=== PATIENT | female | born 1945 | race Hispanic/Latino ===

== ENCOUNTER 2021-12-23 20:11 | Inpatient (IN) | payer MEDICARE ==
[2021-12-23] MEDS ORDERED: ASPIRIN 325 MG TAB PO ONE (20:58)
--- NOTE | 2021-12-23 21:31 | XRay Report ---
XR chest routine 2V INDICATION / CLINICAL INFORMATION: CHEST PAIN. COMPARISON: None available. FINDINGS: SUPPORT DEVICES: None. HEART /PULMONARY VASCULATURE: No significant abnormality. LUNGS / PLEURA: No significant pulmonary or pleural abnormality. No pneumothorax. ADDITIONAL FINDINGS: Moderate thoracic spondylosis. No acute osseous findings. IMPRESSION: 1. No acute findings. Signer Name: Torres Tobar MD Signed: 12/23/2021 9:27 PM Workstation Name: [id number]
[2021-12-23 22:14] LABS: Basophils # (Auto) 0.1 K/mm3 (0.0-0.1); Basophils % (Auto) 0.9 % (0.0-1.8); Eosinophils # (Auto) 0.2 K/mm3 (0.0-0.4); Eosinophils % (Auto) 3.5 % (0.0-4.3); Hematocrit 39.4 % (30.3-42.9); Hemoglobin 13.4 gm/dl (10.1-14.3); Lymphocytes % (Auto) 32.4 % (13.4-35.0); Mean Corpuscular HGB Conc 34 % (30-34); Mean Corpuscular Volume 92 fl (79-97); Monocytes # (Auto) 0.6 K/mm3 (0.0-0.8); Monocytes % (Auto) 9.1 % (0.0-7.3); Platelet Count 149 K/mm3 (140-440); Red Cell Distribution Width 13.7 % (13.2-15.2)
[2021-12-23 22:36] LABS: Alanine Aminotransferase 23 units/L (7-56); Albumin 4.3 g/dL (3.9-5); BUN/Creatinine Ratio 21; Blood Urea Nitrogen 17 mg/dL (7-17); Calcium 10.3 mg/dL (8.4-10.2); Hemolysis Index 6
[2021-12-23] MEDS ORDERED: CLOPIDOGREL 75 MG TAB PO ONE (22:53)
[2021-12-23] MEDS ORDERED: ENOXAPARIN 100 MG/1 ML INJ SUB-Q ONE (22:53)
[2021-12-23] MEDS ORDERED: ASPIRIN 81 MG TAB CHEW PO ONE (22:53)
--- NOTE | 2021-12-23 22:59 | Emergency Department Report ---
HPI - General Chief Complaint: Chest Pain Time Seen by Provider: 12/23/21 22:53 - HPI HPI: 3 days prior to arrival the patient had a 2-hour episode of upper anterior chest pain that was nonradiating moderate pressure-like and not associated with any increase in her chronic shortness of breath nor any nausea or diaphoresis. The patient was feeling well until today when she had a 4-hour episode of the same pain that is currently not present. She also reports a slight increase in her usual nausea that she has chronically. She denies headache more shortness of breath than usual vomiting or any other associated symptoms. Aspirin made it better nothing makes it worse. The last time she had a stress test was back in 2010. ED Past Medical Hx - Past Medical History Hx Hypertension: Yes Hx Diabetes: Yes Additional medical history: Hypercholesterolemia - Family History Family history: no significant - Social History Smoking Status: Never Smoker Substance Use Type: None ED Review of Systems ROS: Stated complaint: CHEST PAIN Other details as noted in HPI All other systems reviewed and negative. Physical Exam - Physical Exam Vital Signs: Vital Signs 12/23/21 20:38 Temperature 99.5 F Pulse Rate 57 L Respiratory 18 Rate Blood Pressure 108/55 O2 Sat by Pulse 96 Oximetry Physical Exam: Physical Exam: Constitutional: AAOX3. No acute distress. No diaphoresis. Obese HENT: Normocephalic. Pupils equal and reactive. No throat edema or erythema. Neck: No neck rigidity or tenderness. Cardiovascular: Heart sounds: No murmur. Normal rate and regular rhythm. Pulses: Intact distal pulses. Lungs: No wheezing or rales. Chest wall: No tenderness. Abdominal: No distension. No mass/pulsatile mass. No abdominal tenderness, guarding nor rebound. Back: No CVA TTP. Musculoskeletal: Normal range of motion. No edema, No calf TTP. Skin: Warm and dry. Neurological: Alert and oriented to person, place, and time. Psychiatric: Mood and affect normal. Normal cognition and memory. Normal judgement. ED Course Vital Signs 12/23/21 20:38 Temperature 99.5 F Pulse Rate 57 L Respiratory 18 Rate Blood Pressure 108/55 O2 Sat by Pulse 96 Oximetry - Reevaluation(s) Reevaluation #1: 12/23/21 22:58 EKG done at 2043 showed a rate of 62, normal. The rhythm is sinus rhythm, normal. There is prolonged MN interval. There is left axis deviation. There is an age-indeterminate anterior infarct. There is abnormal T waves with inversions in the anterolateral leads. There is minimal ST segment elevation in aVF and 3 not meeting criteria for STEMI. Reevaluation #2: 12/23/21 22:59 The patient is currently pain-free. It looks like she has had a non-STEMI. We will be keeping her in the hospital for cardiology evaluation. She will get Plavix aspirin and Lovenox. She does not have a history of kidney disease although her creatinine here is elevated at 2.2. Critical care time: 30 minutes. 12/23/21 23:00 ED Medical Decision Making - Lab Data Result diagrams: 12/23/21 21:21 12/23/21 21:21 Critical care attestation.: If time is entered above; I have spent that time in minutes in the direct care of this critically ill patient, excluding procedure time. ED Disposition Clinical Impression: Non-STEMI (non-ST elevated myocardial infarction) Disposition: 02 SHORT TERM HOSPITAL Is pt being admited?: Yes Does the pt Need Aspirin: No Condition: Stable
[2021-12-23] MEDS ORDERED: ENOXAPARIN 80 MG/0.8 ML INJ SUB-Q ONE (23:00)
[2021-12-23 23:12] LABS: Chol/HDL Ratio 2.35 %; HDL Cholesterol 59 mg/dL (40-59); LDL Cholesterol,Direct 53 mg/dL (50-130)
[2021-12-23] MEDS ORDERED: SODIUM CHLORIDE 0.9% 1000 ML 1,000 ML IV SCH (23:45)
[2021-12-23] MEDS ORDERED: traMADol 50 MG TAB PO PRN (23:46)
[2021-12-23] MEDS ORDERED: ACETAMINOPHEN 325 MG TAB PO PRN (23:46)
[2021-12-23] MEDS ORDERED: DEXTROSE 50% IN WATER (25GM) 50 ML SYRINGE IV PRN (23:46)
[2021-12-23] MEDS ORDERED: MORPHINE 4 MG/1 ML INJ IV PRN (23:46)
[2021-12-23] MEDS ORDERED: NITROGLYCERIN 0.4 MG TAB SUBL SL PRN (23:46)
[2021-12-24] MEDS ORDERED: hydrALAZINE 20 MG/1 ML INJ IV PRN (00:18)
--- NOTE | 2021-12-24 00:18 | History and Physical Report ---
History of Present Illness Date of examination: 12/24/21 Date of admission: 12/24/21 Chief complaint: Chest pain History of present illness: 76 years old female with past medical history of diabetes hypertension and high cholesterol was brought to the emergency room because of 2-hour episode of upper anterior chest pain that was nonradiating moderate pressure-like and not associated with any increase in her chronic shortness of breath nor any nausea or diaphoresis. The patient was feeling well until today when she had a 4-hour episode of the same pain that is currently not present. She also reports a slight increase in her usual nausea that she has chronically. She denies headache more shortness of breath than usual vomiting or any other associated symptoms. Aspirin made it better nothing makes it worse. The last time she had a stress test was back in 2010. In the emergency room patient is found to have troponin of 0.193. We are going to admit the patient we will put the patient on chest pain pathway , will do serial cardiac enzyme. Will consult cardiology for evaluation Past History Past Medical History: diabetes, hypertension, hyperlipidemia Past Surgical History: No surgical history Social history: no significant social history Family history: no significant family history Medications and Allergies Allergies Allergy/AdvReac Type Severity Reaction Status Date / Time No Known Allergies Allergy Verified 12/23/21 20:58 Active Meds: Active Medications Acetaminophen (Acetaminophen 325 Mg Tab) 650 mg PO Q6H PRN PRN Reason: Pain, Mild (1-3) Aspirin (Aspirin 81 Mg Tab Chew) 81 mg PO QDAY BENEDICT Atorvastatin Calcium (Atorvastatin 40 Mg Tab) 40 mg PO QHS BENEDICT Clopidogrel Bisulfate (Clopidogrel 75 Mg Tab) 75 mg PO QDAY [facility] Dextrose (Dextrose 50% In Water (25gm) 50 Ml Syringe) 0 ml IV Q30MIN PRN; Protocol PRN Reason: Hypoglycemia Heparin Sodium (Porcine) (Heparin 5,000 Unit/1 Ml Vial) 5,000 unit SUB-Q Q12HR BENEDICT Sodium Chloride (Nacl 0.9% 1000 Ml) 1,000 mls @ 100 mls/hr IV DIRECT BENEDICT Insulin Human Lispro (Insulin Lispro 100 Unit/Ml) 0 unit SUB-Q Q6HR BENEDICT; Protocol Morphine Sulfate (Morphine 4 Mg/1 Ml Inj) 2 mg IV Q5MIN PRN PRN Reason: Chest Pain unrelieved by NTG Nitroglycerin (Nitroglycerin 0.4 Mg Tab Subl) 0.4 mg SL Q5M PRN PRN Reason: Chest Pain Sodium Chloride (Sodium Chloride 0.9% 10 Ml Flush Syringe) 10 ml IV PRN PRN PRN Reason: LINE FLUSH Tramadol HCl (Tramadol 50 Mg Tab) 50 mg PO Q6H PRN PRN Reason: Pain, Moderate (4-6) Review of Systems All systems: negative Cardiovascular: chest pain, shortness of breath Respiratory: shortness of breath Gastrointestinal: nausea Exam - Constitutional Vitals: Temp Pulse Resp BP Pulse Ox 99.5 F 57 L 18 108/55 96 12/23/21 20:38 12/23/21 20:38 12/23/21 20:38 12/23/21 20:38 12/23/21 20:38 General appearance: Present: no acute distress, well-nourished - EENT Eyes: Present: PERRL ENT: hearing intact, clear oral mucosa - Neck Neck: Present: supple, normal ROM - Respiratory Respiratory effort: normal Respiratory: bilateral: diminished - Cardiovascular Heart Sounds: Present: S1 & S2. Absent: rub, click - Extremities Extremities: pulses symmetrical, No edema Peripheral Pulses: within normal limits - Abdominal General gastrointestinal: Present: soft, non-tender, non-distended, normal bowel sounds Female genitourinary: Present: normal - Integumentary Integumentary: Present: clear, warm, dry - Musculoskeletal Musculoskeletal: gait normal, strength equal bilaterally - Psychiatric Psychiatric: appropriate mood/affect, intact judgment & insight - Neurologic Neurologic: CNII-XII intact, moves all extremities HEART Score - HEART Score Troponin: Troponin T 0.193 ng/mL (0.00-0.029) H* 12/23/21 21:21 Results - Labs CBC & Chem 7: 12/23/21 21:21 12/23/21 21:21 Labs: Laboratory Last Values WBC 6.1 K/mm3 (4.5-11.0) 12/23/21 21: RBC 4.30 M/mm3 (3.65-5.03) 12/23/21 21:21 Hgb 13.4 gm/dl (10.1-14.3) 12/23/21 21:21 Hct 39.4 % (30.3-42.9) 12/23/21 21: MCV 92 fl (79-97) 12/23/21: MCH 31 pg (28-32) 12/23/21 21:21 MCHC 34 % (30-34) 12/23/21 21:21 RDW 13.7 % (13.2-15.2) 12/23/21 21:21 Plt Count 149 K/mm3 (140-440) 12/23/21 21:21 Lymph % (Auto) 32.4 % (13.4-35.0) 12/23/21 21:21 [place] % (Auto) 9.1 % (0.0-7.3) H 12/23/21 21:21 Eos % (Auto) 3.5 % (0.0-4.3) 12/23/21 21: Baso % (Auto) 0.9 % (0.0-1.8) 12/23/21 21: Lymph # (Auto) 2.0 K/mm3 (1.2-5.4) 12/23/21 21: [place] # (Auto) 0.6 K/mm3 (0.0-0.8) 12/23/21 21:21 Eos # (Auto) 0.2 K/mm3 (0.0-0.4) 12/23/21 21:21 Baso # (Auto) 0.1 K/mm3 (0.0-0.1) 12/23/21 21: Seg Neutrophils % 54.1 % (40.0-70.0) 12/23/21 21: Seg Neutrophils # 3.3 K/mm3 (1.8-7.7) 12/23/21 21:21 Sodium 139 mmol/L (137-145) 12/23/21 21:21 Potassium 3.5 mmol/L (3.6-5.0) L 12/23/21 21:21 Chloride 99.3 mmol/L (98-107) 12/23/21 21:21 Carbon Dioxide 27 mmol/L (22-30) 12/23/21 21:21 Anion Gap 16 mmol/L 12/23/21 21:21 BUN 17 mg/dL (7-17) 12/23/21 21:21 Creatinine 0.8 mg/dL (0.6-1.2) 12/23/21 21:21 Estimated GFR > 60 ml/min 12/23/21 21:21 BUN/Creatinine Ratio 21 % 12/23/21 21:21 Glucose 108 mg/dL (65-100) H 12/23/21 21:21 Calcium 10.3 mg/dL (8.4-10.2) H 12/23/21 21:21 Total Bilirubin 0.90 mg/dL (0.1-1.2) 12/23/21 21:21 AST 44 units/L (5-40) H 12/23/21 21:21 ALT 23 units/L (7-56) 12/23/21 21:21 Alkaline Phosphatase 111 units/L (35-129) 12/23/21 21:21 Troponin T 0.193 ng/mL (0.00-0.029) H* 12/23/21 21:21 Total Protein 7.7 g/dL (6.3-8.2) 12/23/21 21:21 Albumin 4.3 g/dL (3.9-5) 12/23/21 21:21 Albumin/Globulin Ratio 1.3 % 12/23/21 21:21 Triglycerides 192 mg/dL (2-149) H 12/23/21 21:21 Cholesterol 139 mg/dL (50-199) 12/23/21 21:21 LDL Cholesterol Direct 53 mg/dL (50-130) 12/23/21 21:21 HDL Cholesterol 59 mg/dL (40-59) 12/23/21 21:21 Cholesterol/HDL Ratio 2.35 % 12/23/21 21:21 - Imaging and Cardiology Chest x-ray: report reviewed Assessment and Plan VTE prophylaxis?: Chemical Plan of care discussed with patient/family: Yes - Patient Problems (1) Non-ST elevation NV (NSTEMI) Status: Acute Plan to address problem: Admit the patient to the medical telemetry. Aspirin 81 mg p.o. daily. Plavix 75 mg p.o. daily. Lipitor 40 mg p.o. daily. Nitroglycerin as needed. We will do the serial cardiac enzyme. We do the echocardiogram and consult cardiology (2) Diabetes Status: Acute Plan to address problem: Accu-Chek every 6 hours with Humalog moderate dose coverage. Diabetic education (3) Hypertension Status: Acute Plan to address problem: Hydralazine 10 mg IV every 6 hours as needed. We will continue the home medication (4) High cholesterol Status: Acute Plan to address problem: Lipitor 40 mg p.o. daily. We will recheck the lipid panel. (5) DVT prophylaxis Status: Acute Plan to address problem: Heparin 5000 units subcu every 12 hours for DVT prophylaxis. Pepcid 20 mg p.o. twice daily for GI prophylaxis. Patient is a full code
[2021-12-24 00:34] LABS: Blood Urea Nitrogen 16 mg/dL (7-17); Calcium 10.2 mg/dL (8.4-10.2); Hemolysis Index 5
[2021-12-24 00:38] LABS: BUN/Creatinine Ratio 23
[2021-12-24] MEDS ORDERED: POTASSIUM CHLORIDE ER 20 MEQ TAB PO SCH (08:30)
[2021-12-24] MEDS ORDERED: HEPARIN 10,000 UNITS/10 ML VIAL IV SCH (09:30)
[2021-12-24] MEDS ORDERED: CLOPIDOGREL 75 MG TAB PO SCH (10:00)
[2021-12-24] MEDS ORDERED: SODIUM CHLORIDE 0.9% 500 ML 500 ML IV SCH ×2 (10:00→15:00)
[2021-12-24] MEDS ORDERED: NITROGLYCERIN DRIP 50 MG/250 ML BOTTLE IV SCH (10:00)
[2021-12-24] MEDS ORDERED: HEPARIN/ 0.45% NACL DRIP 25,000 UNIT/500 ML BAG IV SCH (10:00)
[2021-12-24] MEDS ORDERED: HEPARIN 5,000 UNIT/1 ML VIAL SUB-Q SCH (10:00)
[2021-12-24] MEDS ORDERED: HEPARIN 10,000 UNITS/10 ML VIAL IV PRN (10:00)
--- NOTE | 2021-12-24 10:44 | Electrocardiograph Report ---
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
[2021-12-24 11:43] LABS: Eosinophils # (Auto) 0.1 K/mm3 (0.0-0.4); Eosinophils % (Auto) 2.7 % (0.0-4.3); Lymphocytes # (Auto) 1.2 K/mm3 (1.2-5.4); Monocytes # (Auto) 0.4 K/mm3 (0.0-0.8)
[2021-12-24 11:56] LABS: INR 1.03 (0.87-1.13); Partial Thromboplastin Time 33.4 Sec. (24.2-36.6)
[2021-12-24] MEDS: FAMOTIDINE 20 MG TAB PO SCH ×2 (12:08→21:02)
[2021-12-24 12:09] LABS: Blood Urea Nitrogen 14 mg/dL (7-17); Calcium 10.5 mg/dL (8.4-10.2); Hemolysis Index 0
[2021-12-24 12:10] LABS: BUN/Creatinine Ratio 20
[2021-12-24 12:11] LABS: Basophils % (Auto) 0.7 % (0.0-1.8); Hematocrit 40.1 % (30.3-42.9); Hemoglobin 13.1 gm/dl (10.1-14.3); Lymphocytes % (Auto) 29.7 % (13.4-35.0); Mean Corpuscular HGB Conc 33 % (30-34); Mean Corpuscular Volume 92 fl (79-97); Monocytes % (Auto) 9.7 % (0.0-7.3); Platelet Count 114 K/mm3 (140-440); Red Blood Count 4.35 M/mm3 (3.65-5.03); Red Cell Distribution Width 13.6 % (13.2-15.2)
--- NOTE | 2021-12-24 12:18 | Consultation ---
History of Present Illness Consult date: 12/24/21 Requesting physician: YINKA BETANCOURT Consult reason: other (NSTEMI) History of present illness: Patient is 68-year-old female with a past medical history of diabetes, hypertension, and hyperlipidemia who came to the ED for a complaint of chest pain which started this past Thursday. Patient reports that she was in her usual state of health when all of a sudden on Thursday afternoon she developed chest pressure that radiated into her jaw and was associated with nausea and loose bowels. Patient reports that she took aspirin at home with some release to have pain. Patient reports that she did not have any pain on Thursday however on Thursday the pain returned and was not relieved with anything so she came to the ED for further evaluation. In the ED patient was found to have elevated troponin of 0.19. 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 Patient is previously unknown to our practice. Cardiology is consulted for NSTEMI Past History Past Medical History: diabetes, hypertension, hyperlipidemia Past Surgical History: cholecystectomy, total knee replacement, Other (Back surgery) Social history: no significant social history Family history: CAD, diabetes, other (Parkinson) Medications and Allergies Allergies Allergy/AdvReac Type Severity Reaction Status Date / Time bee venom protein (honey bee) Allergy Anaphylaxis Verified 12/24/21 10:21 brinzolamide [From Azopt] Allergy Anaphylaxis Verified 12/24/21 10:21 cephalexin [From Keflex] Allergy Anaphylaxis Verified 12/24/21 10:21 ciprofloxacin [From Cipro] Allergy Anaphylaxis Verified 12/24/21 10:21 doxycycline Allergy Anaphylaxis Verified 12/24/21 10:21 guaifenesin Allergy Anaphylaxis Verified 12/24/21 10:21 ibuprofen [From Motrin] Allergy Anaphylaxis Verified 12/24/21 10:21 levofloxacin [From Levaquin] Allergy Anaphylaxis Verified 12/24/21 10:21 meclizine Allergy Anaphylaxis Verified 12/24/21 10:21 Penicillins Allergy Anaphylaxis Verified 12/24/21 10:10 red dye Allergy Anaphylaxis Verified 12/24/21 10:21 rofecoxib [From Vioxx] Allergy Anaphylaxis Verified 12/24/21 10:21 Sulfa (Sulfonamide Allergy Anaphylaxis Verified 12/24/21 10:21 Antibiotics) tetracycline Allergy Anaphylaxis Verified 12/24/21 10:21 codeine AdvReac Unknown Verified 12/24/21 10:21 Active Meds: Active Medications Acetaminophen (Acetaminophen 325 Mg Tab) 650 mg PO Q6H PRN PRN Reason: Pain, Mild (1-3) Aspirin (Aspirin 81 Mg Tab Chew) 81 mg PO QDAY [facility]EDICT Atorvastatin Calcium (Atorvastatin 40 Mg Tab) 40 mg PO QHS [facility]ENEDICT Dextrose (Dextrose 50% In Water (25gm) 50 Ml Syringe) 0 ml IV Q30MIN PRN; Protocol PRN Reason: Hypoglycemia Famotidine (Famotidine 20 Mg Tab) 20 mg PO BID BENEDICT Heparin Sodium (Porcine) (Heparin 10,000 Units/10 Ml Vial) 4,400 unit IV Q6H PRN PRN Reason: Anti-Xa Assay < 0.1 units/ml Hydralazine HCl (Hydralazine 20 Mg/1 Ml Inj) 10 mg IV Q6H PRN PRN Reason: Blood Pressure Sodium Chloride (Nacl 0.9% 1000 Ml) 1,000 mls @ 100 mls/hr IV DIRECT BENEDICT Sodium Chloride (Nacl 0.9% 500 Ml) 500 mls @ 50 mls/hr IV DIRECT BENEDICT Stop: 12/24/21 19:59 Heparin Sodium/Sodium Chloride (Heparin/ 0.45% Nacl-25,000 Unit/500 Ml) 25,000 unit in 500 mls @ 20 mls/hr IV TITRATE BENEDICT; Protocol Last Admin: 12/24/21 11:37 Dose: 1,000 units/hr, 20 mls/hr Nitroglycerin/Dextrose (Tridil Drip 50mg/250ml) 50 mg in 250 mls @ 6 mls/hr IV TITR BENEDICT; Protocol Insulin Human Lispro (Insulin Lispro 100 Unit/Ml) 0 unit SUB-Q Q6HR BENEDICT; Protocol Morphine Sulfate (Morphine 4 Mg/1 Ml Inj) 2 mg IV Q5MIN PRN PRN Reason: Chest Pain unrelieved by NTG Nitroglycerin (Nitroglycerin 0.4 Mg Tab Subl) 0.4 mg SL Q5M PRN PRN Reason: Chest Pain Potassium Chloride (Potassium Chloride Er 20 Meq Tab) 40 meq PO ONCE@0830 [facility] Stop: 12/24/21 12:30 Sodium Chloride (Sodium Chloride 0.9% 10 Ml Flush Syringe) 10 ml IV PRN PRN PRN Reason: LINE FLUSH Tramadol HCl (Tramadol 50 Mg Tab) 50 mg PO Q6H PRN PRN Reason: Pain, Moderate (4-6) Review of Systems Constitutional: no weight loss, no weight gain, no fever, no chills Ears, nose, mouth and throat: no sinus pressure, no sinus pain Cardiovascular: chest pain (Radiates to jaw), shortness of breath (Patient reports chronic shortness of breath) Respiratory: shortness of breath, dyspnea on exertion Gastrointestinal: nausea, diarrhea, change in bowel habits, no vomiting Musculoskeletal: no neck stiffness, no neck pain Integumentary: no rash, no pruritis, no redness Neurological: no head injury, no transient paralysis Psychiatric: anxiety Endocrine: no cold intolerance, no heat intolerance Hematologic/Lymphatic: no easy bruising, no easy bleeding Physical Examination Vital Signs Temp Pulse Resp BP Pulse Ox 99.5 F 57 L 18 108/55 96 12/23/21 20:38 12/23/21 20:38 12/23/21 20:38 12/23/21 20:38 12/23/21 20:38 General appearance: no acute distress HEENT: Positive: Normocephaly Neck: Positive: trachea midline Cardiac: Positive: Reg Rate and Rhythm Lungs: Positive: Normal Breath Sounds Neuro: Positive: Grossly Intact Abdomen: Positive: Soft, Active Bowel Sounds Skin: Negative: Rash, Suspicious Lesions, Ulceration Extremities: Present: upper extr. pulses, edema Results 12/24/21 Unknown 12/24/21 Unknown Cardiac Enzymes 12/23/21 Range/Units 21:21 AST 44 H (5-40) units/L Coagulation 12/24/21 Range/Units Unknown PT 14.7 (12.2-14.9) Sec. INR 1.03 (0.87-1.13) APTT 33.4 (24.2-36.6) Sec. Lipids 12/23/21 Range/Units 21:21 Triglycerides 192 H (2-149) mg/dL Cholesterol 139 (50-199) mg/dL HDL Cholesterol 59 (40-59) mg/dL Cholesterol/HDL Ratio 2.35 % CBC 12/23/21 12/24/21 Range/Units 21:21 Unknown WBC 6.1 4.2 L (4.5-11.0) K/mm3 RBC 4.30 4.35 (3.65-5.03) M/mm3 Hgb 13.4 13.1 (10.1-14.3) gm/dl Hct 39.4 40.1 (30.3-42.9) % Plt Count 149 114 L (140-440) K/mm3 Lymph # (Auto) 2.0 1.2 (1.2-5.4) K/mm3 Centre # (Auto) 0.6 0.4 (0.0-0.8) K/mm3 Eos # (Auto) 0.2 0.1 (0.0-0.4) K/mm3 Baso # (Auto) 0.1 0.0 (0.0-0.1) K/mm3 Comprehensive Metabolic Panel 12/23/21 12/23/21 12/24/21 Range/Units 21:21 23:52 Unknown Sodium 139 139 142 (137-145) mmol/L Potassium 3.5 L 3.4 L 3.6 (3.6-5.0) mmol/L Chloride 99.3 98.0 103.4 (98-107) mmol/L Carbon Dioxide 27 27 28 (22-30) mmol/L BUN 17 16 14 (7-17) mg/dL Creatinine 0.8 0.7 0.7 (0.6-1.2) mg/dL Glucose 108 H 102 H 117 H (65-100) mg/dL Calcium 10.3 H 10.2 10.5 H (8.4-10.2) mg/dL AST 44 H (5-40) units/L ALT 23 (7-56) units/L Alkaline Phosphatase 111 (35-129) units/L Total Protein 7.7 (6.3-8.2) g/dL Albumin 4.3 (3.9-5) g/dL - Imaging and Cardiology Echo: report reviewed Cardiac cath: pending EKG interpretations - Telemetry EKG Rhythm: Sinus Rhythm - EKG Sinus rhythms and dysrhythmias: sinus rhythm Repolarization changes or abnormalities: ST or T wave suggestive of ischemia Myocardial infarction: anterior ND (old age or i Assessment and Plan Patient is 68-year-old female with a past medical history of diabetes, hypertension, and hyperlipidemia who came to the ED for a complaint of chest rola n which started this past Thursday NSTEMI Hypertension Diabetes Hyperlipidemia Echo 12/23/2021-EF 50 to 55%. Right ventricular systolic function is normal. Trace mitral regurgitation. Trace tricuspid regurgitation. Plan: EKG shows sinus rhythm 62 with prolonged [place] interval. Left axis deviation. Anterior infarct age indeterminate. Abnormal T wave, probable ischemia, widespread. Troponin is noted to be elevated and downtrending . 0.19->0.18->0.17. Will initiate heparin drip and nitroglycerin drip Patient for cardiac cath in the AM. N.p.o. after midnight Patient currently on aspirin Plavix and Lipitor. Will stop Plavix Continue aspirin and Lipitor No beta-todd due to patient having low heart rate Echo results noted above. Patient has normal echo Discussed plan of care with patient who verbalized understanding and acknowledgment Patient seen in conjunction with Dr. Moreno who agrees with this plan of care - Patient Problems (1) Non-ST elevation ND (NSTEMI) Current Visit: No Status: Acute (2) Diabetes Current Visit: No Status: Acute (3) Hypertension Current Visit: No Status: Acute (4) High cholesterol Current Visit: No Status: Acute
[2021-12-24] MEDS: INSULIN LISPRO 100 UNIT/ML SUB-Q SCH ×2 (15:17→18:50)
--- NOTE | 2021-12-24 15:47 | Event Note ---
Date: 12/24/21 The patient was evaluated this morning, and she was found to be hemodynamically stable. #Non-insulin dependent type II diabetes mellitus - hemoglobin A1c: 6.5 - home regimen: Unknown - current regimen: Moderate SSI - blood glucose goal 140-180 while inpatient - continue to monitor #NSTEMI Troponin 0.19--> 0.18--> 0.17 TTE revealing EF 50-55% with normal-sized LV, normal LV systolic function, mild concentric LVH, and RVSP is 12 mmHg. Cardiology consulted; appreciate recs Discontinuing Plavix. Continuing with Aspirin 81 mg daily, atorvastatin 40 mg daily. Continue heparin drip and nitroglycerin drip. Patient transferred to [facility]. Continue to monitor. #Hyperlipidemia #Hypertension - home medications: Atorvastatin 40 mg daily - current medications: Atorvastatin 40 mg daily. - SBP goal <160 and DBP goal <90 while inpatient. Pending repeat lipid panel. Hemoglobin A1c 6.5. - continue to monitor #Morbid obesity #Weight loss counseling #Exercise counseling - BMI 44.3 - Counseled patient on the importance of weight loss, incorporating exercise, and dietary changes (lean meats, fresh fruits and vegetables, and water intake). Patient expresses understanding. - Time: +15 min #Coordination of CARE time: 30 minutes. Total visit time equals 30 or more minutes with greater than 50% spent [id number] on coordination of care and counseling. Critical Care Billing: The high probability of a clinically significant, sudden or life threatening deterioration of the [cardiac] system(s) required my full and direct attention, intervention and personal management. The aggregate critical care time was [60] minutes. This time is in addition to time spent performing reported procedures but includes the following: [x] Data Review and interpretation [x] Patient assessment and monitoring of vital signs [x] Documentation [x] Medication orders and management
[2021-12-24] MEDS: ASPIRIN 81 MG TAB CHEW PO SCH (16:44)
[2021-12-24] MEDS ORDERED: LIP THERAPY VASELINE TP PRN (19:35)
[2021-12-25] MEDS: INSULIN LISPRO 100 UNIT/ML SUB-Q SCH ×2 (01:01→06:10)
[2021-12-25 04:29] LABS: Basophils % (Auto) 0.7 % (0.0-1.8); Eosinophils # (Auto) 0.1 K/mm3 (0.0-0.4); Eosinophils % (Auto) 3.1 % (0.0-4.3); Hematocrit 36.6 % (30.3-42.9); Hemoglobin 12.4 gm/dl (10.1-14.3); Lymphocytes # (Auto) 1.8 K/mm3 (1.2-5.4); Lymphocytes % (Auto) 41.3 % (13.4-35.0); Mean Corpuscular HGB Conc 34 % (30-34); Mean Corpuscular Volume 92 fl (79-97); Monocytes # (Auto) 0.5 K/mm3 (0.0-0.8); Monocytes % (Auto) 10.2 % (0.0-7.3); Platelet Count 104 K/mm3 (140-440); Red Cell Distribution Width 13.6 % (13.2-15.2)
[2021-12-25 04:40] LABS: INR 1.04 (0.87-1.13)
[2021-12-25 04:44] LABS: BUN/Creatinine Ratio 15; Blood Urea Nitrogen 12 mg/dL (7-17); Calcium 9.8 mg/dL (8.4-10.2); Hemolysis Index 3
[2021-12-25] MEDS ORDERED: ONDANSETRON 4 MG/2 ML INJ IV PRN (05:45)
[2021-12-25] MEDS: ASPIRIN 81 MG TAB CHEW PO SCH ×2 (05:55→10:39)
[2021-12-25] MEDS: POTASSIUM CHLORIDE 10 MEQ 10 MEQ/100 ML BAG IV SCH ×4 (06:50→10:45)
[2021-12-25] MEDS ORDERED: HEPARIN/NS 5000 UNIT/500ML 1,000 ML IR ONE (08:17)
[2021-12-25] MEDS ORDERED: NITROGLYCERIN SYRINGE 3 ML ONE (08:18)
--- NOTE | 2021-12-25 08:32 | Progress Note ---
Assessment and Plan Assessment and plan: History of present illness: 76 years old female with past medical history of diabetes hypertension and high cholesterol was brought to the emergency room because of 2-hour episode of upper anterior chest pain that was nonradiating moderate pressure-like and not associated with any increase in her chronic shortness of breath nor any nausea or diaphoresis. The patient was feeling well until today when she had a 4-hour episode of the same pain that is currently not present. She also reports a slight increase in her usual nausea that she has chronically. She denies headache more shortness of breath than usual vomiting or any other associated symptoms. Aspirin made it better nothing makes it worse. The last time she had a stress test was back in 2010. In the emergency room patient is found to have troponin of 0.193. We are going to admit the patient we will put the patient on chest pain pathway , will do serial cardiac enzyme. Will consult cardiology for evaluation Hospital Course: 12/25/2021: Plan for coronary angiography today by cardiology. We will follow-up results of cath. Assessment and Plan: #NSTEMI - EKG shows sinus rhythm 62 with prolonged MD interval. Left axis deviation. Anterior infarct age indeterminate. Abnormal T wave, probable ischemia, widespread. Troponin 0.19--> 0.18--> 0.17 TTE revealing EF 50-55% with normal-sized LV, normal LV systolic function, mild concentric LVH, and RVSP is 12 mmHg. Cardiology consulted; appreciate recs Discontinuing Plavix. Continuing with Aspirin 81 mg daily, atorvastatin 40 mg daily. Continue heparin drip and nitroglycerin drip. Patient transferred to [facility]. Continue to monitor. #Hyperlipidemia - home medications: Atorvastatin 40 mg daily #Hypertension - home medications: Atorvastatin 40 mg daily - SBP goal <160 and DBP goal <90 while inpatient. Pending repeat lipid panel. Hemoglobin A1c 6.5. - continue to monitor #Non-insulin dependent type II diabetes mellitus - hemoglobin A1c: 6.5 - home regimen: Unknown - current regimen: Moderate SSI - blood glucose goal 140-180 while inpatient - continue to monitor #Morbid obesity #Weight loss counseling #Exercise counseling - BMI 44.3 - Counseled patient on the importance of weight loss, incorporating exercise, and dietary changes (lean meats, fresh fruits and vegetables, and water intake). Patient expresses understanding. - Time: +15 min Critical Care Billing: The high probability of a clinically significant, sudden or life threatening deterioration of the [cardiac] system(s) required my full and direct attention, intervention and personal management. The aggregate critical care time was [60] minutes. This time is in addition to time spent performing reported procedures but includes the following: [x] Data Review and interpretation [x] Patient assessment and monitoring of vital signs [x] Documentation [x] Medication orders and management Hospitalist Physical - Constitutional Vitals: Temp Pulse Resp BP Pulse Ox 98.3 F 73 22 131/44 99 12/25/21 03:56 12/25/21 06:01 12/25/21 06:01 12/25/21 06:01 12/25/21 05:00 General appearance: Present: no acute distress HEART Score - HEART Score Troponin: Troponin T 0.170 ng/mL (0.00-0.029) H* 12/24/21 05:43 Results - Labs CBC & Chem 7: 12/25/21 04:11 12/25/21 04:11 Labs: Laboratory Last Values WBC 4.4 K/mm3 (4.5-11.0) L 12/25/21 04:11 RBC 4.00 M/mm3 (3.65-5.03) 12/25/21 04:11 Hgb 12.4 gm/dl (10.1-14.3) 12/25/21 04:11 Hct 36.6 % (30.3-42.9) 12/25/21 04:11 MCV 92 fl (79-97) 12/25/21 04:11 MCH 31 pg (28-32) 12/25/21 04:11 MCHC 34 % (30-34) 12/25/21 04:11 RDW 13.6 % (13.2-15.2) 12/25/21 04:11 Plt Count 104 K/mm3 (140-440) L 12/25/21 04:11 Lymph % (Auto) 41.3 % (13.4-35.0) H 12/25/21 04:11 [place] % (Auto) 10.2 % (0.0-7.3) H 12/25/21 04:11 Eos % (Auto) 3.1 % (0.0-4.3) 12/25/21 04:11 Baso % (Auto) 0.7 % (0.0-1.8) 12/25/21 04:11 Lymph # (Auto) 1.8 K/mm3 (1.2-5.4) 12/25/21 04:11 [place] # (Auto) 0.5 K/mm3 (0.0-0.8) 12/25/21 04:11 Eos # (Auto) 0.1 K/mm3 (0.0-0.4) 12/25/21 04:11 Baso # (Auto) 0.0 K/mm3 (0.0-0.1) 12/25/21 04:11 Seg Neutrophils % 44.7 % (40.0-70.0) 12/25/21 04:11 Seg Neutrophils # 2.0 K/mm3 (1.8-7.7) 12/25/21 04:11 PT 14.8 Sec. (12.2-14.9) 12/25/21 04:11 INR 1.04 (0.87-1.13) 12/25/21 04:11 APTT 35.0 Sec. (24.2-36.6) 12/25/21 04:11 Heparin Anti-Xa Level 0.51 U.I./ml (0.3-0.7) 12/24/21 18:50 Sodium 137 mmol/L (137-145) 12/25/21 04:11 Potassium 3.2 mmol/L (3.6-5.0) L 12/25/21 04:11 Chloride 101.1 mmol/L (98-107) 12/25/21 04:11 Carbon Dioxide 26 mmol/L (22-30) 12/25/21 04:11 Anion Gap 13 mmol/L 12/25/21 04:11 BUN 12 mg/dL (7-17) 12/25/21 04:11 Creatinine 0.8 mg/dL (0.6-1.2) 12/25/21 04:11 Estimated GFR > 60 ml/min 12/25/21 04:11 BUN/Creatinine Ratio 15 % 12/25/21 04:11 Glucose 77 mg/dL (65-100) 12/25/21 04:11 POC Glucose 102 mg/dL (70-105) 12/25/21 07:49 Hemoglobin A1c 6.5 % (4-6) H 12/23/21 21:21 Calcium 9.8 mg/dL (8.4-10.2) 12/25/21 04:11 Total Bilirubin 0.90 mg/dL (0.1-1.2) 12/23/21 21:21 AST 44 units/L (5-40) H 12/23/21 21:21 ALT 23 units/L (7-56) 12/23/21 21:21 Alkaline Phosphatase 111 units/L (35-129) 12/23/21 21:21 Troponin T 0.170 ng/mL (0.00-0.029) H* 12/24/21 05:43 Total Protein 7.7 g/dL (6.3-8.2) 12/23/21 21:21 Albumin 4.3 g/dL (3.9-5) 12/23/21 21:21 Albumin/Globulin Ratio 1.3 % 12/23/21 21:21 Triglycerides 192 mg/dL (2-149) H 12/23/21 21:21 Cholesterol 139 mg/dL (50-199) 12/23/21 21:21 LDL Cholesterol Direct 53 mg/dL (50-130) 12/23/21 21:21 HDL Cholesterol 59 mg/dL (40-59) 12/23/21 21:21 Cholesterol/HDL Ratio 2.35 % 12/23/21 21:21 Blood Type A POSITIVE 12/24/21 12:05 Antibody Screen Negative 12/24/21 12:05 [place]/IV: Voiding Method Toilet Active Medications - Current Medications Current Medications: Generic Name Dose Route Start Last Admin Trade Name Freq PRN Reason Stop Dose Admin Acetaminophen 650 mg 12/23/21 23:46 Acetaminophen 325 Mg Tab PO Q6H PRN Pain, Mild (1-3) Aspirin 81 mg 12/24/21 10:00 12/25/21 05:55 Aspirin 81 Mg Tab Chew PO 81 mg QDAY BENEDICT Administration Atorvastatin Calcium 40 mg 12/24/21 22:00 12/24/21 21:02 Atorvastatin 40 Mg Tab PO 40 mg QHS BENEDICT Administration Dextrose 0 ml 12/23/21 23:46 Dextrose 50% In Water (25gm) 50 Ml Syringe IV Q30MIN PRN Hypoglycemia Protocol Famotidine 20 mg 12/24/21 10:00 12/24/21 21:02 Famotidine 20 Mg Tab PO 20 mg BID BENEDICT Administration Heparin Sodium (Porcine) 4,400 unit 12/24/21 10:00 Heparin 10,000 Units/10 Ml Vial IV Q6H PRN Anti-Xa Assay < 0.1 units/ml Hydralazine HCl 10 mg 12/24/21 00:18 Hydralazine 20 Mg/1 Ml Inj IV Q6H PRN Blood Pressure Hydrophilic Ointment 1 applic 12/24/21 19:35 Lip Therapy Vaseline TP DIRECT PRN Dry Lips Sodium Chloride 1,000 mls @ 100 mls/hr 12/23/21 23:45 12/25/21 05:55 Nacl 0.9% 1000 Ml IV 100 mls/hr DIRECT BENEDICT Administration Nitroglycerin/Dextrose 50 mg in 250 mls @ 6 mls/hr 12/24/21 10:00 Tridil Drip 50mg/250ml IV TITR BENEDICT Protocol 20 MCG/MIN Potassium Chloride 10 meq in 100 mls @ 100 mls/hr 12/25/21 07:00 12/25/21 07:29 Kcl 10meq/100ml IV 12/25/21 10:59 100 mls/hr Q1H BENEDICT Administration Insulin Human Lispro 0 unit 12/24/21 00:00 12/25/21 06:10 Insulin Lispro 100 Unit/Ml SUB-Q Not Given Q6HR [facility] Protocol Morphine Sulfate 2 mg 12/23/21 23:46 Morphine 4 Mg/1 Ml Inj IV Q5MIN PRN Chest Pain unrelieved by NTG Nitroglycerin 0.4 mg 12/23/21 23:46 Nitroglycerin 0.4 Mg Tab Subl SL Q5M PRN Chest Pain Ondansetron HCl 4 mg 12/25/21 05:45 12/25/21 05:55 Ondansetron 4 Mg/2 Ml Inj IV 4 mg Q6H PRN Administration Nausea Sodium Chloride 10 ml 12/23/21 23:46 Sodium Chloride 0.9% 10 Ml Flush Syringe IV PRN PRN LINE FLUSH Tramadol HCl 50 mg 12/23/21 23:46 Tramadol 50 Mg Tab PO Q6H PRN Pain, Moderate (4-6) Nutrition/Malnutrition Assess - Dietary Evaluation Nutrition/Malnutrition Findings: Nutrition Notes Start: 12/24/21 16:45 Freq: Status: Active Protocol: Document 12/24/21 16:45 STEVAN (Rec: 12/24/21 16:53 STEVAN [id number]) Nutrition Notes Need for Assessment generated from: MD Order,Education Initial or Follow up Brief Note Current Diagnosis Diabetes,Hypertension, Hyperlipidemia Other Pertinent Diagnosis NSTEMI. Current Diet Cardiac Diet (since D 12/24), NPO (from 12/25 00:01). 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 Weight Status Morbidly Obese Subjective/Other Information RD consult for nutrition education assessment. No reports available on Pt's PO intake of meals at the time , will assess at F/U. Pt is on Room Air, O2 saturation @ 98%, according to Physical Assessment History notes. Pt's HbA1c is at 6.5%, according to Progress notes. Pt still in critical condition , not a candidate for Nutrition Education at the time, will assess feasibility on F/U. Percent of energy/protein needs met: Prescribed Cardiac Diet provides for energy/protein needs (2,230 Kcal/85 g) during LOS. Nutrition Intervention Follow-Up By: 12/31/21 Additional Comments Nutrition education will be provided on F/U, if feasible. Continue monitoring food tolerance, %PO intake of meals , and BM.
--- NOTE | 2021-12-25 09:08 | Electrocardiograph Report ---
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
[2021-12-25] MEDS: fentaNYL 100 MCG/2 ML INJ ONE ×2 (09:13→09:18)
[2021-12-25] MEDS: MIDAZOLAM 2 MG/2 ML INJ ONE ×2 (09:13→09:17)
[2021-12-25] MEDS: HEPARIN 10,000 UNITS/10 ML VIAL ONE ×3 (09:14→09:31)
[2021-12-25] MEDS: LIDOCAINE (1%) 10 MG/1 ML VIAL 20 ML MDV ONE ×2 (09:14→09:22)
[2021-12-25] MEDS: VERAPAMIL 5 MG/2 ML INJ ONE ×2 (09:25→10:38)
[2021-12-25] MEDS ORDERED: NITROGLYCERIN DRIP 50 MG/250 ML BOTTLE ONE (09:42)
[2021-12-25] MEDS: CLOPIDOGREL 300 MG TAB ONE ×2 (10:00→10:39)
[2021-12-25] MEDS: ALUM-MAG HYDROXIDE-SIMETHICONE 200-200-20MG/5ML ORAL LIQD 30 ML ONE ×2 (10:00→10:39)
[2021-12-25] MEDS ORDERED: traMADol 50 MG TAB PO PRN (10:01)
--- NOTE | 2021-12-25 10:06 | Progress Note ---
Assessment and Plan 76 y/o female with morbid obesity and htn, chol and dm, has nstemi and acute diastolic heart failure, lhc today revealed lt main patent, lad calcium proximal 95%, rest of lad patent, lcx osital 40% om1 and om2 patent, rca diffuse 10% pda and plv patent normal lv function, unsuccessful pci of lad loaded pt with plavix, and had chest pain during attempted intervention started on iv nitro and currently chest pain free transfer to [place] for rota of lad and post cath care - Patient Problems (1) Morbid obesity Current Visit: Yes Status: Chronic (2) Acute diastolic (congestive) heart failure Current Visit: Yes Status: Acute (3) Non-STEMI (non-ST elevated myocardial infarction) Current Visit: Yes Status: Acute (4) Diabetes Current Visit: No Status: Chronic Qualifiers: Diabetes mellitus type: type 2 Diabetes 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 insulin use: with terminal press operator use Diabetes mellitus complication status: with circulatory complication Diabetes mellitus complication detail: with other circulatory complications Qualified Code(s): E11.59 - Type 2 diabetes mellitus with other circulatory complications; Z79.4 - ferry terminal agent (current) use of insulin (5) High cholesterol Current Visit: No Status: Chronic (6) Hypertension Current Visit: No Status: Chronic Qualifiers: Hypertension type: primary hypertension Qualified Code(s): I10 - Essential (primary) hypertension Subjective Date of service: 12/25/21 Principal diagnosis: nstemi Interval history: chest free this am Objective Vital Signs Temp Pulse Pulse Resp Resp BP BP 12/25/21 06:01 73 22 131/44 12/25/21 05:00 51 L 15 131/44 12/25/21 04:39 50 L 12 12/25/21 04:00 47 L 8 L 129/49 12/25/21 03:56 98.3 F 12/25/21 03:45 50 L 12/25/21 03:00 51 L 18 158/56 12/25/21 02:00 48 L 14 145/58 12/25/21 01:00 48 L 13 139/59 12/25/21 00:51 57 L 12 12/25/21 00:35 46 L 12/25/21 00:01 63 12 128/59 12/25/21 00:00 99.2 F 12/24/21 23:15 51 L 13 128/59 12/24/21 23:00 50 L 14 128/59 12/24/21 22:00 58 L 11 L 131/62 12/24/21 21:01 44 L 11 L 146/87 12/24/21 20:30 56 L 12/24/21 20:06 55 L 12 12/24/21 20:00 55 L 12 138/72 12/24/21 19:32 100 F H 12/24/21 19:12 16 12/24/21 19:00 63 14 173/77 12/24/21 18:11 64 21 177/75 12/24/21 18:00 61 13 177/75 12/24/21 17:51 63 16 173/66 12/24/21 17:41 63 17 173/66 12/24/21 17:31 65 18 173/66 12/24/21 17:21 62 14 173/66 12/24/21 17:11 64 18 173/66 12/24/21 17:00 64 23 173/66 12/24/21 16:51 57 L 18 164/69 12/24/21 16:41 60 21 164/69 12/24/21 16:31 54 L 10 L 164/69 12/24/21 16:21 59 L 14 164/69 12/24/21 16:19 64 18 12/24/21 16:18 97.8 F 12/24/21 16:11 61 13 164/69 12/24/21 16:00 55 L 11 L 164/69 12/24/21 15:51 54 L 12 144/57 12/24/21 15:41 57 L 12 144/57 12/24/21 15:31 55 L 13 144/57 12/24/21 15:21 57 L 14 144/57 12/24/21 15:12 64 12/24/21 15:11 56 L 18 144/57 12/24/21 15:00 57 L 17 144/57 12/24/21 14:51 66 11 L 146/71 12/24/21 14:45 68 18 12/24/21 14:41 59 L 16 146/71 12/24/21 14:31 65 17 146/71 12/24/21 14:21 60 12 144/121 12/24/21 14:13 12/24/21 13:50 53 L 14 128/56 12/24/21 13:41 52 L 16 128/54 12/24/21 13:31 53 L 14 128/54 12/24/21 13:20 55 L 15 128/54 12/24/21 13:11 54 L 14 132/57 12/24/21 13:01 55 L 13 132/57 12/24/21 12:50 54 L 20 132/57 12/24/21 12:41 55 L 15 123/60 12/24/21 12:31 58 L 13 123/60 12/24/21 12:21 58 L 11 L 116/56 12/24/21 12:11 60 13 116/56 12/24/21 12:01 63 12 116/56 12/24/21 11:59 61 18 109/54 12/24/21 11:51 64 12 146/37 12/24/21 11:41 65 14 146/37 12/24/21 11:31 69 12 146/37 12/24/21 11:21 62 17 146/37 12/24/21 11:11 70 13 146/37 12/24/21 11:01 67 20 146/37 12/24/21 10:51 62 13 146/37 12/24/21 10:41 68 22 146/37 12/24/21 10:31 69 11 L 146/37 12/24/21 10:21 79 16 146/37 12/24/21 10:15 146/37 Pulse Ox 12/25/21 06:01 12/25/21 05:00 99 12/25/21 04:39 100 12/25/21 04:00 97 12/25/21 03:56 12/25/21 03:45 12/25/21 03:00 90 12/25/21 02:00 96 12/25/21 01:00 97 12/25/21 00:51 99 12/25/21 00:35 12/25/21 00:01 12/25/21 00:00 12/24/21 23:15 100 12/24/21 23:00 98 12/24/21 22:00 98 12/24/21 21:01 94 12/24/21 20:30 12/24/21 20:06 92 12/24/21 20:00 91 12/24/21 19:32 12/24/21 19:12 12/24/21 19:00 96 05/31/22 18:11 96 12/24/21 18:00 97 12/24/21 17:51 97 12/24/21 17:41 97 12/24/21 17:31 96 12/24/21 17:21 94 12/24/21 17:11 94 12/24/21 17:00 97 12/24/21 16:51 96 12/24/21 16:41 95 12/24/21 16:31 97 12/24/21 16:21 96 12/24/21 16:19 98 12/24/21 16:18 12/24/21 16:11 94 12/24/21 16:00 92 12/24/21 15:51 97 12/24/21 15:41 95 12/24/21 15:31 96 12/24/21 15:21 91 12/24/21 15:12 12/24/21 15:11 98 12/24/21 15:00 98 12/24/21 14:51 97 12/24/21 14:45 97 12/24/21 14:41 97 12/24/21 14:31 98 12/24/21 14:21 99 12/24/21 14:13 97 12/24/21 13:50 94 12/24/21 13:41 91 12/24/21 13:31 91 12/24/21 13:20 92 12/24/21 13:11 92 12/24/21 13:01 94 12/24/21 12:50 91 12/24/21 12:41 91 12/24/21 12:31 93 12/24/21 12:21 91 12/24/21 12:11 97 12/24/21 12:01 92 12/24/21 11:59 99 12/24/21 11:51 97 12/24/21 11:41 92 12/24/21 11:31 93 12/24/21 11:21 96 12/24/21 11:11 97 12/24/21 11:01 91 12/24/21 10:51 95 12/24/21 10:41 97 12/24/21 10:31 96 12/24/21 10:21 96 12/24/21 10:15 98 - Physical Examination General: Appears Well HEENT: Positive: Normocephaly Neck: Positive: trachea midline Cardiac: Positive: Reg Rate and Rhythm Lungs: Positive: clear to auscultation Neuro: Positive: Grossly Intact Abdomen: Positive: Soft, Active Bowel Sounds Skin: Negative: Rash, Suspicious Lesions, Ulceration Extremities: Present: upper extr. pulses. Absent: edema - Labs and Meds Coagulation 12/24/21 12/25/21 Range/Units Unknown 04:11 PT 14.7 14.8 (12.2-14.9) Sec. INR 1.03 1.04 (0.87-1.13) APTT 33.4 35.0 (24.2-36.6) Sec. CBC 12/24/21 12/25/21 Range/Units Unknown 04:11 WBC 4.2 L 4.4 L (4.5-11.0) K/mm3 RBC 4.35 4.00 (3.65-5.03) M/mm3 Hgb 13.1 12.4 (10.1-14.3) gm/dl Hct 40.1 36.6 (30.3-42.9) % Plt Count 114 L 104 L (140-440) K/mm3 Lymph # (Auto) 1.2 1.8 (1.2-5.4) K/mm3 [place] # (Auto) 0.4 0.5 (0.0-0.8) K/mm3 Eos # (Auto) 0.1 0.1 (0.0-0.4) K/mm3 Baso # (Auto) 0.0 0.0 (0.0-0.1) K/mm3 Comprehensive Metabolic Panel 12/24/21 12/25/21 Range/Units Unknown 04:11 Sodium 142 137 (137-145) mmol/L Potassium 3.6 3.2 L (3.6-5.0) mmol/L Chloride 103.4 101.1 (98-107) mmol/L Carbon Dioxide 28 26 (22-30) mmol/L BUN 14 12 (7-17) mg/dL Creatinine 0.7 0.8 (0.6-1.2) mg/dL Glucose 117 H 77 (65-100) mg/dL Calcium 10.5 H 9.8 (8.4-10.2) mg/dL - Imaging and Cardiology Echo: report reviewed Cardiac cath: report reviewed (lt main patent, lad calcium proximal 95%, rest of lad patent, lcx osital 40% om1 and om2 patent, rca diffuse 10% pda and plv patent normal lv function, unsuccessful pci of lad ) - Telemetry EKG Rhythm: Sinus Rhythm - EKG Sinus rhythms and dysrhythmias: sinus rhythm Repolarization changes or abnormalities: ST or T wave suggestive of ischemia Myocardial infarction: anterior NM (old age or i
[2021-12-25] MEDS: FAMOTIDINE 20 MG TAB PO SCH (10:40)
[2021-12-25 11:02] VITALS: BP 116/56
--- NOTE | 2021-12-25 11:03 | Discharge Summary ---
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 The patient was feeling well until today when she had a 4-hour episode of the same pain that is currently not present. She also reports a slight increase in her usual nausea that she has chronically. She denies headache more shortness of breath than usual vomiting or any other associated symptoms. Aspirin made it better nothing makes it worse. The last time she had a stress test was back in 2010. In the emergency room patient is found to have troponin of 0.193. We are going to admit the patient we will put the patient on chest pain pathway , will do serial cardiac enzyme. Will consult cardiology for evaluation Hospital Course: 12/25/2021: Plan for coronary angiography today by cardiology. We will follow-up results of cath. Discussed with Dr. Moreno. Patient has calcified LAD lesion which will require roto atherectomy. Plan for discharge with transfer to tertiary ([facility]). Assessment and Plan: #NSTEMI - EKG shows sinus rhythm 62 with prolonged [place] interval. Left axis deviation. Anterior infarct age indeterminate. Abnormal T wave, probable ischemia, widespread. Troponin 0.19--> 0.18--> 0.17 TTE revealing EF 50-55% with normal-sized LV, normal LV systolic function, mild concentric LVH, and RVSP is 12 mmHg. Cardiology consulted; appreciate recs Discontinuing Plavix. Continuing with Aspirin 81 mg daily, atorvastatin 40 mg daily. Continue heparin drip and nitroglycerin drip. Patient transferred to [facility]. Continue to monitor. cath report: lt main patent, lad calcium proximal 95%, rest of lad patent, lcx osital 40% om1 and om2 patent, rca diffuse 10% pda and plv patent normal lv function, unsuccessful pci of lad #Hyperlipidemia - home medications: Atorvastatin 40 mg daily #Hypertension - home medications: Atorvastatin 40 mg daily - SBP goal <160 and DBP goal <90 while inpatient. Pending repeat lipid panel. Hemoglobin A1c 6.5. - continue to monitor #Non-insulin dependent type II diabetes mellitus - hemoglobin A1c: 6.5 - home regimen: Unknown - current regimen: Moderate SSI - blood glucose goal 140-180 while inpatient - continue to monitor #Morbid obesity #Weight loss counseling #Exercise counseling - BMI 44.3 - Counseled patient on the importance of weight loss, incorporating exercise, and dietary changes (lean meats, fresh fruits and vegetables, and water intake). Patient expresses understanding. - Time: +15 min Disposition: 02 SHORT TERM HOSPITAL Final Discharge Diagnosis (Prints w/discharge instructions): nstemi Time spent for discharge: 35 Core Measure Documentation - Palliative Care Palliative Care/ Comfort Measures: Not Applicable - Core Measures Any of the following diagnoses?: acute OR - Acute OR Discharge Requirements Aspirin at discharge: Yes JJ/ARB for LVSD if EF <40%: Yes Beta todd at discharge: Yes Statin for LDL = or >100 mg/dl on DC: Yes Exam - Constitutional Vitals: Temp Pulse Resp BP Pulse Ox 98.4 F 54 L 16 109/56 99 12/25/21 10:49 12/25/21 10:43 12/25/21 10:43 12/25/21 10:17 12/25/21 10:43 Plan Follow up with: PRIMARY MD LAZARUS [Primary Care Provider] - 7 Days
--- NOTE | 2021-12-25 22:02 | Cardiac Catherization Report ---
DATE OF SERVICE: 12/24/2021 LEFT HEART CATHETERIZATION, INTRAVASCULAR ULTRASOUND AND ATTEMPTED PERCUTANEOUS CORONARY INTERVENTION CLINICAL INFORMATION: This is a 76-year-old female who presents with a non-ST elevation SC, hypertension, diabetes, cholesterol, multiple allergies, here for left heart catheterization. Left heart catheterization performed with moderate sedation started at 09:18, finished at 09:48, 30 minutes of moderate sedation noted. DESCRIPTION OF PROCEDURE: Procedure was done via the right radial artery, sterile technique and local anesthesia. A 6-Mosotho radial sheath inserted. Left system engaged with JL3.5 catheter. There was calcification of the left coronary system noted. Left main is large caliber and patent. LAD proximal has 50% and just before diagonal 1 has a focal 95% lesion, mildly calcified. Diagonal 1 is a small to medium caliber and the rest of the LAD is a large caliber vessel, was patent. Circumflex is a medium to large caliber vessel, proximal or ostial has a 40% lesion. OM1 is a small caliber, was patent. OM2 is a small to medium caliber, was patent with moderate severe tortuosity. RCA engaged with JR4 is a large, dominant vessel, diffusely calcified 10%. PDA, PLV are medium caliber vessels with multiple branches covering the lateral wall that are patent. LV gram done in ZOHREH and VELEZ view shows normal LV function, EF 50-55%. LVEDP 28 mmHg, LV is 149, aortic is 143/60. No significant gradient across the aortic valve. Percutaneous coronary intervention of the LAD engaged the left system with an EBU 3.5 guiding catheter. The patient's angiogram showed ABEL 3 flow. I engaged the left system with EBU 3.5 catheter to try to cross with a short [place] wire. Unable to deliver intravascular ultrasound, calcified at the ostial, multiple attempts with wiring. In view of such calcification of the vessel, the patient will need rotational atherectomy of the LAD. Removed coronary wire. The patient had continued ABEL 3, focal stenosis 95%. No dissection or perforation, or embolization noted. A 6-Mosotho guiding catheter taken over a guidewire. A 6-Mosotho radial sheath was discontinued. Radial band applied. No hematoma, no bleeding. SUMMARY: The patient has significant ostial proximal LAD calcified lesion 50-95%. Rest of the LAD after diagonal 1 is a large caliber and patent. Circumflex ostial 40%. OM1, small patent. OM2 patent. RCA diffuse 10% calcified. PDA, PLV patent with normal LV function. RECOMMENDATIONS: The patient will be loaded with Plavix, transferred to [place] for rotational atherectomy of the LAD. Discussed with the patient and the accepting doctor. TID: [id number] RECEIPT: [id number] VRM/EKT
[2021-12-26] MEDS ORDERED: CLOPIDOGREL 75 MG TAB PO SCH (10:00)
== END 2021-12-25 11:45 | disposition short-term general hospital (02) | DRG 280 ==
LOC: ED 20:11 → 4A 23:47 → IMCU 12-24 11:55
PROVIDERS: ADMIT Hospitalist; ATTEND Internal Medicine
PROC: 4A023N7 Measurement of Cardiac Sampling and Pressure, Left Heart, Percutaneous Approach (ICD-10-PCS; principal; 2021-12-25)
PROC: B2111ZZ Fluoroscopy of Multiple Coronary Arteries using Low Osmolar Contrast (ICD-10-PCS; 2021-12-25)
PROC: B240ZZ3 Ultrasonography of Single Coronary Artery, Intravascular (ICD-10-PCS; 2021-12-25)
PROC: B2151ZZ Fluoroscopy of Left Heart using Low Osmolar Contrast (ICD-10-PCS; 2021-12-25)
PROC: 02JA3ZZ Inspection of Heart, Percutaneous Approach (ICD-10-PCS; 2021-12-25)
DX: I21.4 Non-ST elevation (NSTEMI) myocardial infarction (principal); I50.31 Acute diastolic (congestive) heart failure; Z68.41 Body mass index [BMI] 40.0-44.9, adult; E11.9 Type 2 diabetes mellitus without complications; I11.0 Hypertensive heart disease with heart failure; Z96.653 Presence of artificial knee joint, bilateral; E66.01 Morbid (severe) obesity due to excess calories; E78.00 Pure hypercholesterolemia, unspecified; Z90.49 Acquired absence of other specified parts of digestive tract; Z88.0 Allergy status to penicillin; Z88.1 Allergy status to other antibiotic agents; Z88.8 Allergy status to other drugs, medicaments and biological substances; Z82.49 Family history of ischemic heart disease and other diseases of the circulatory system; Z83.3 Family history of diabetes mellitus; Z88.5 Allergy status to narcotic agent; Z88.2 Allergy status to sulfonamides; Z88.6 Allergy status to analgesic agent; Z91.030 Bee allergy status; Z91.041 Radiographic dye allergy status; Z71.3 Dietary counseling and surveillance; Z79.4 Long term (current) use of insulin
CPT/HCPCS: 36415; 71046; 80048; 80053; 80061; 82962; 83036; 84484; 85025; 85520; 85610; 85730; 86850; 86900; 86901; 92978; 93005; 93306; 93458; G0378; J1815; J3490; C1753; C1769; C1887; C1894; C8929; J1644; J1650; J2250; J2405; J3010; J3480; J7030; Q9967